=== PATIENT | female | born 1965 | race Caucasian/White ===

== ENCOUNTER → 2019-04-13 09:26 | Outpatient (CLI) | payer OTHER, SELFPAY ==
[2019-04-15 18:35] LABS: Fecal Immunochemical Test NOT DETECTED (NOT DETECTED)
== END ==
PROVIDERS: PCP Specialist; Visit Provider Specialist
DX: Z12.11 Encounter for screening for malignant neoplasm of colon (principal)
CPT/HCPCS: 82274